=== PATIENT | female | born 1980 | race Two or more races ===

== ENCOUNTER → 2016-10-26 | Outpatient (CLI) | payer MEDICAID | LOC: FIMAGING 12:04 | PROVIDERS: ATTEND Obstetrics & Gynecology | DX: O09.512 Supervision of elderly primigravida, second trimester (principal); O99.312 Alcohol use complicating pregnancy, second trimester; O99.332 Smoking (tobacco) complicating pregnancy, second trimester; Z3A.26 26 weeks gestation of pregnancy ==

== ENCOUNTER → 2016-11-23 | Outpatient (CLI) | payer OTHER, MEDICAID | LOC: FIMAGING 13:01 | PROVIDERS: ATTEND Obstetrics & Gynecology | DX: O09.513 Supervision of elderly primigravida, third trimester (principal); Z3A.30 30 weeks gestation of pregnancy ==